=== PATIENT | female | born 1995 | race Caucasian/White ===

== ENCOUNTER → 2016-11-17 | Outpatient (CLI) | payer BC ==
[~2016-11-17] VITALS: Ht 170.2 cm; Wt 198.6 kg
[~2016-11-17] MED LIST: BUPR150CR PO; CHLORHEXIDINE GLUCONATE 2 % 1 PACK (2 CLOTHS) TOPICAL PRN; DO NOT ADM ANY ANTICOAGULANT DRUGS PRN; FLUMAZENIL 0.5 MG/5 ML VIAL IV PRN; INSULIN HUMAN REGULAR 1,000 UNITS/10 ML VIAL SQ PRN; LACTATED RINGER'S 1000 ML IV PRN; METOPROLOL TARTRATE 25 MG TAB PO PRN; NALOXONE HCL 0.4 MG/ML AMP IV PRN; ONDANSETRON HCL 4 MG/2 ML VIAL IV PUSH ONE; POVIDONE IODINE 5% (ANTISEPSIS KIT) 4 APPLICATIONS EACH NARE PRN; PROPOFOL 200 MG/20 ML AMP IV ONE; SODIUM CHLORID 0.9% 500 ML IV PRN
[2016-11-17 08:50] VITALS: BP 159/84; PULSE 93; RESP 18; TEMP 98.1; O2SAT 98
--- NOTE | 2016-11-17 10:51 | GIPROC ---
[facility] [address] [facility]. [facility], [address] EGD PROCEDURE REPORT EXAM DATE: 11/17/2016 PATIENT NAME: Kaycee Donnelly MR #: [id number] BIRTHDATE: 1995 ATTENDING: Miguel Hernandez MD ORDER #: [id number] ELEVATORS INSPECTOR: Vicki Sofia RN and Sunitha Le RN STATUS: outpatient INDICATIONS: The patient is a 21 yr old female here for an EGD due to Preoperative assessment PROCEDURE PERFORMED: EGD w/ biopsy MEDICATIONS: Per Anesthesia and None. TOPICAL ANESTHETIC: none CONSENT: The patient understands the risks and benefits of the procedure and understands that these risks include, but are not limited to: sedation, allergic reaction, infection, perforation and/or bleeding. Alternative means of evaluation and treatment include, among others: physical exam, x-rays, and/or surgical intervention. The patient elects to proceed with this endoscopic procedure. medical equipment was checked for proper function. Hand hygiene and appropriate measures for infection prevention was taken. After the risks, benefits and alternatives of the procedure were thoroughly explained, Informed consent was verified, confirmed and timeout was successfully executed by the treatment team. The patient was anesthetized with general anesthesia and the Pentax EG-[id number] endoscope was introduced through the mouth and advanced to the second portion of the duodenum. +bile noted no evidence of gastritis or esophagitis. Retroflexed views revealed a very small hiatal abnormality. The gastroscope was then slowly withdrawn and removed. The endoscopy was otherwise normal. ESOPHAGUS: A very small hiatal hernia was noted. ADVERSE EVENTS: There were no complications. IMPRESSIONS: 1. Normal endoscopy otherwise 2. Retroflexed views revealed a very small hiatal hernia 3. Small Hiatus hernia RECOMMENDATIONS: Await biopsy results. Biopsy results will not be ready for 7-10 days. If you don't hear from us in two weeks, call our office for biopsy results. PATIENT CONDITION: fair DISPOSITION: Home REPEAT EXAM: NONE Miguel Hernandez MD eSigned: Miguel Hernandez MD 11/17/2016 10:51 AM cc: Uriel Mccabe M.D.
[2016-11-17 12:39] VITALS: BP 114/55; PULSE 88; RESP 18; TEMP 97.5; O2SAT 97
== END ==
LOC: HSDC 07:36
PROVIDERS: ATTEND Surgery
DX: K44.9 Diaphragmatic hernia without obstruction or gangrene (principal); Z01.818 Encounter for other preprocedural examination
CPT/HCPCS: 00740; 43239; 88305; 88312; J2405; J3010; J7120